=== PATIENT | female | born 2005 | race Caucasian/White ===

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

== ENCOUNTER 2023-03-13 21:14 | Emergency (ER) | payer OTHER ==
[~2023-03-13] VITALS: Ht 152.4 cm; Wt 60.7 kg
[2023-03-13 21:15] VITALS: BP 123/67
== END 2023-03-13 23:38 | disposition left against medical advice (07) ==
LOC: M ED 21:14
DX: Z53.21 Procedure and treatment not carried out due to patient leaving prior to being seen by health care provider (principal)

== ENCOUNTER 2024-05-16 14:04 | Inpatient (IN) | payer OTHER ==
[~2024-05-16] VITALS: Ht 152.4 cm; Wt 60.9 kg
[~2024-05-16 14:04] MED LIST changes: +CEFD1CAP9 PO; -CEFD300C41 PO; +GLUC1KIT IM; -GLUC1KIT INJ
[2024-05-16] MEDS ORDERED: PROZ20CA11 PO (14:16)
[2024-05-16 14:59] LABS: BASO % 0.4 % (0.0-1.0); EOS % 0.2 % (0.0-3.0); HEMATOCRIT 41.3 % (36.0-47.0); HEMOGLOBIN 13.7 g/dl (12.0-15.5); LYMPH # 0.4 10^3/uL (1.5-5.0); LYMPH % 8.3 % (24.0-44.0); MEAN CORPUSCULAR HEMOGLOBIN 29.5 pg (27.0-33.0); MEAN CORPUSCULAR HGB CONC 33.2 g/dl (32.0-36.5); MEAN CORPUSCULAR VOLUME 88.8 fl (80.0-96.0); MONO # 0.6 10^3/uL (0.0-0.8); MONO % 12.1 % (2.0-8.0); NEUTROPHILS # 3.7 10^3/uL (1.5-8.5); NEUTROPHILS % 78.4 % (36.0-66.0); PLATELET COUNT, AUTOMATED 203 10^3/uL (150-450); RED BLOOD COUNT 4.65 10^6/uL (4.00-5.40); WHITE BLOOD COUNT 4.7 10^3/uL (4.0-10.0)
[2024-05-16 15:24] LABS: LIPASE 25 U/L (12-53)
[2024-05-16] MEDS: NS 1,000 ML IV ONE ×2 (15:26→18:45)
[2024-05-16 15:27] LABS: HCG, SERUM QUALITATIVE NEGATIVE (NEGATIVE)
[2024-05-16] MEDS: ACETAMINOPHEN *IV* 1,000 MG in IV 1 EA IV ONE (15:27)
[2024-05-16 15:39] LABS: VENOUS BASE EXCESS 2.3 (-2.0-2.0); VENOUS HCO3 26.3 MMOL/L (23.0-27.0); VENOUS O2 SATURATION 90.5 % (60.0-80.0); VENOUS PARTIAL PRESSURE CO2 38.8 mmHg (38.0-50.0); VENOUS PARTIAL PRESSURE O2 55.5 mmHg (30.0-50.0); VENOUS PH 7.449 UNITS (7.330-7.430); VENOUS STANDARD HCO3 26.3 MMOL/L; VENOUS TOTAL CO2 27.5 MMOL/L (24.0-28.0)
[2024-05-16 15:46] LABS: OSMOLALITY SERUM 309 MOSM/KG (275-295)
[2024-05-16 15:49] LABS: ACETONE/KETONE 2.89 MMOL/L (0.02-0.27)
[2024-05-16 15:53] LABS: ALBUMIN 2.8 G/DL (3.2-5.2); ALKALINE PHOSPHATASE 330 U/L (46-116); ALT/SGPT 156 U/L (7.0-40); AST/SGOT 89 U/L (<34); BILIRUBIN,DIRECT 0.3 MG/DL (<0.4); BLOOD UREA NITROGEN 15 MG/DL (9-23); CALCIUM LEVEL 8.9 MG/DL (8.5-10.1); CARBON DIOXIDE LEVEL 26 MMOL/L (20-31); CHLORIDE LEVEL 91 MMOL/L (98-107); CREATININE FOR GFR 0.59 MG/DL (0.55-1.30); GLUCOSE, FASTING 598 MG/DL (60-100); MAGNESIUM LEVEL 1.9 MG/DL (1.8-2.4); PHOSPHORUS LEVEL 2.8 MG/DL (2.5-4.9); POTASSIUM SERUM 4.2 MMOL/L (3.5-5.1); SODIUM LEVEL 129 MMOL/L (136-145); TOTAL PROTEIN 6.5 G/DL (5.7-8.2)
[2024-05-16 15:59] LABS: HEMOGLOBIN A1c 10.8 % (4.0-6.0)
[2024-05-16] MEDS: HumuLIN R (REGULAR) INSULIN (NovoLIN R) **100U/ML** PER UNIT IV ONE (16:47)
[2024-05-16] MEDS: IBUPROFEN 600MG TAB PO ONE (16:50)
[2024-05-16] MEDS ORDERED: ISOVUE-370 76% 100ML VIAL As Ordered ONE (17:10)
[2024-05-16] MEDS: cefTRIAXone SOD 1 GM in D5W MINI-BAG PLUS 50 ML IV ONE (18:52)
[2024-05-16] MEDS ORDERED: PROHANCE 279.3MG/ML 15ML VIAL As Ordered ONE (22:15)
[2024-05-17] MEDS ORDERED: HumuLIN R (REGULAR) INSULIN (NovoLIN R) **100U/ML** PER UNIT IV ONE (01:55)
[2024-05-17] MEDS: HumuLIN R (REGULAR) INSULIN (NovoLIN R) **100U/ML** PER UNIT SC STA (02:04)
[2024-05-17] MEDS ORDERED: GLUCOSE 4 GM CHEW PO PRN (04:25)
[2024-05-17] MEDS ORDERED: DEXTROSE 50% 50ML SYRINGE IV PRN (04:25)
[2024-05-17] MEDS ORDERED: GLUCAGON INJ 1MG VIAL SC PRN (04:25)
[2024-05-17] MEDS: NS 1,000 ML IV SCH (04:30)
[2024-05-17] MEDS ORDERED: FLUO-290 PO (04:51)
[2024-05-17] MEDS ORDERED: FLUO-365 PO (04:51)
[2024-05-17] MEDS ORDERED: MELA1TAB PO (04:51)
[2024-05-17] MEDS ORDERED: HOME MED LIST COMPLETE! XX SCH (04:55)
[2024-05-17] MEDS: MORPHINE 2 MG/ML 1ML VIAL IV PRN (05:40)
[2024-05-17] MEDS: PROMETHAZINE 25MG/ML 1ML VIAL IV PRN (05:40)
[2024-05-17] MEDS: INSULIN LISPRO (NovoLOG) PER UNIT SC ONE (06:09)
[2024-05-17] MEDS: ACETAMINOPHEN TAB 650MG DOSE (2X325MG) PO ONE (06:09)
[2024-05-17 06:36] VITALS: BP 128/71; TEMP 98.5; O2SAT 100
[2024-05-17 08:06] LABS: HEMATOCRIT 39.3 % (36.0-47.0); HEMOGLOBIN 12.3 g/dl (12.0-15.5); MEAN CORPUSCULAR HEMOGLOBIN 29.5 pg (27.0-33.0); MEAN CORPUSCULAR HGB CONC 31.3 g/dl (32.0-36.5); MEAN CORPUSCULAR VOLUME 94.2 fl (80.0-96.0); PLATELET COUNT, AUTOMATED 209 10^3/uL (150-450); RED BLOOD COUNT 4.17 10^6/uL (4.00-5.40); WHITE BLOOD COUNT 7.1 10^3/uL (4.0-10.0)
[2024-05-17 08:33] LABS: ALBUMIN 2.2 G/DL (3.2-5.2); ALKALINE PHOSPHATASE 324 U/L (46-116); ALT/SGPT 125 U/L (7.0-40); AST/SGOT 78 U/L (<34); BILIRUBIN,TOTAL 0.3 MG/DL (0.3-1.2); BLOOD UREA NITROGEN 11 MG/DL (9-23); CALCIUM LEVEL 8.6 MG/DL (8.5-10.1); CARBON DIOXIDE LEVEL < 10.0 MMOL/L (20-31); CHLORIDE LEVEL 101 MMOL/L (98-107); CREATININE FOR GFR 0.65 MG/DL (0.55-1.30); GLUCOSE, FASTING 405 MG/DL (60-100); SODIUM LEVEL 134 MMOL/L (136-145); TOTAL PROTEIN 5.9 G/DL (5.7-8.2)
[2024-05-17] MEDS: ENOXAPARIN 40MG/0.4ML SYRINGE (J1650 PER 10MG) SC SCH (08:45)
[2024-05-17] MEDS: FLUoxetine 10 MG CAP PO SCH (08:45)
[2024-05-17] MEDS: FLUoxetine 20MG CAP PO SCH (08:45)
[2024-05-17] MEDS: LEVEMIR (INSULIN DETEMIR) 1 UNITS/0.01ML SC SCH (08:46)
[2024-05-17] MEDS: INSULIN LISPRO (NovoLOG) PER UNIT SC SCH ×2 (08:46→20:26)
[2024-05-17] MEDS ORDERED: LEVEMIR (INSULIN DETEMIR) 1 UNITS/0.01ML SC SCH (09:00)
[2024-05-17 12:07] VITALS: BP 113/72; TEMP 97; O2SAT 97
[2024-05-17 15:25] LABS: BLOOD UREA NITROGEN 11 MG/DL (9-23); CALCIUM LEVEL 7.8 MG/DL (8.5-10.1); CARBON DIOXIDE LEVEL 23 MMOL/L (20-31); CHLORIDE LEVEL 104 MMOL/L (98-107); CREATININE FOR GFR 0.57 MG/DL (0.55-1.30); GLUCOSE, FASTING 312 MG/DL (60-100); POTASSIUM SERUM 4.1 MMOL/L (3.5-5.1); SODIUM LEVEL 135 MMOL/L (136-145)
[2024-05-17 16:54] VITALS: BP 121/65; TEMP 98.3; O2SAT 95
[2024-05-17] MEDS ORDERED: cefTRIAXone SOD 1 GM in D5W MINI-BAG PLUS 50 ML IV SCH (18:00)
[2024-05-17] MEDS: cefTRIAXone SOD 2 GM in D5W MINI-BAG PLUS 50 ML IV SCH (18:21)
[2024-05-17 19:31] VITALS: BP 138/79; TEMP 98.3; O2SAT 98
[2024-05-17] MEDS: LEVOTHYROXINE 50MCG TABLET (0.05MG) PO SCH (20:25)
[2024-05-17 23:48] VITALS: BP 123/78; TEMP 98.2; O2SAT 98
[2024-05-18 04:05] VITALS: BP 138/89; TEMP 98.1; O2SAT 98
[2024-05-18 07:28] VITALS: BP 138/92; TEMP 98.2; O2SAT 99
[2024-05-18 07:41] LABS: HEMATOCRIT 37.6 % (36.0-47.0); HEMOGLOBIN 12.3 g/dl (12.0-15.5); MEAN CORPUSCULAR HEMOGLOBIN 29.1 pg (27.0-33.0); MEAN CORPUSCULAR HGB CONC 32.7 g/dl (32.0-36.5); MEAN CORPUSCULAR VOLUME 88.9 fl (80.0-96.0); PLATELET COUNT, AUTOMATED 231 10^3/uL (150-450); RED BLOOD COUNT 4.23 10^6/uL (4.00-5.40); WHITE BLOOD COUNT 7.1 10^3/uL (4.0-10.0)
[2024-05-18 07:59] LABS: BLOOD UREA NITROGEN 6 MG/DL (9-23); CALCIUM LEVEL 8.1 MG/DL (8.5-10.1); CARBON DIOXIDE LEVEL 27 MMOL/L (20-31); CHLORIDE LEVEL 108 MMOL/L (98-107); CREATININE FOR GFR 0.49 MG/DL (0.55-1.30); GLUCOSE, FASTING 99 MG/DL (60-100); POTASSIUM SERUM 3.5 MMOL/L (3.5-5.1); SODIUM LEVEL 142 MMOL/L (136-145)
[2024-05-18 08:37] LABS: ATYPICAL LYMPH 8 % (0-5); LYMPHOCYTES 11 % (16-44); MONOCYTES 8 % (0-5); NEUTROPHILS 68 % (28-66)
[2024-05-18 08:40] LABS: PLATELET ESTIMATE NORMAL (NORMAL)
[2024-05-18 12:08] VITALS: BP 129/86; TEMP 98.1; O2SAT 97
[2024-05-18 16:16] VITALS: BP 140/90; TEMP 97; O2SAT 97
[2024-05-18 18:53] VITALS: BP 135/95; TEMP 98.2; O2SAT 99
[2024-05-18 23:28] VITALS: BP 136/89; TEMP 98.4; O2SAT 97
[2024-05-19] MEDS: ACETAMINOPHEN TAB 650MG DOSE (2X325MG) PO ONE
[2024-05-19 04:12] VITALS: BP 124/91; TEMP 97; O2SAT 99
[2024-05-19 06:50] LABS: BASO % 0.5 % (0.0-1.0); EOS # 0.1 10^3/uL (0.0-0.5); EOS % 1.6 % (0.0-3.0); HEMATOCRIT 35.6 % (36.0-47.0); HEMOGLOBIN 11.9 g/dl (12.0-15.5); LYMPH # 2.6 10^3/uL (1.5-5.0); LYMPH % 34.8 % (24.0-44.0); MEAN CORPUSCULAR HEMOGLOBIN 29.5 pg (27.0-33.0); MEAN CORPUSCULAR HGB CONC 33.4 g/dl (32.0-36.5); MEAN CORPUSCULAR VOLUME 88.1 fl (80.0-96.0); MONO # 0.7 10^3/uL (0.0-0.8); MONO % 9.4 % (2.0-8.0); NEUTROPHILS # 3.9 10^3/uL (1.5-8.5); NEUTROPHILS % 53.2 % (36.0-66.0); PLATELET COUNT, AUTOMATED 244 10^3/uL (150-450); RED BLOOD COUNT 4.04 10^6/uL (4.00-5.40); WHITE BLOOD COUNT 7.4 10^3/uL (4.0-10.0)
[2024-05-19 07:07] LABS: ALBUMIN 1.9 G/DL (3.2-5.2); ALKALINE PHOSPHATASE 279 U/L (46-116); ALT/SGPT 101 U/L (7.0-40); AST/SGOT 85 U/L (<34); BILIRUBIN,DIRECT < 0.1 MG/DL (<0.4); BILIRUBIN,TOTAL 0.3 MG/DL (0.3-1.2); BLOOD UREA NITROGEN 6 MG/DL (9-23); CALCIUM LEVEL 8.4 MG/DL (8.5-10.1); CARBON DIOXIDE LEVEL 32 MMOL/L (20-31); CHLORIDE LEVEL 105 MMOL/L (98-107); CREATININE FOR GFR 0.43 MG/DL (0.55-1.30); GLUCOSE, FASTING 90 MG/DL (60-100); POTASSIUM SERUM 3.4 MMOL/L (3.5-5.1); SODIUM LEVEL 143 MMOL/L (136-145); TOTAL PROTEIN 5.3 G/DL (5.7-8.2)
[2024-05-19 07:46] VITALS: BP 140/100; TEMP 97.4; O2SAT 97
[2024-05-19] MEDS ORDERED: PROBCAP14 PO (08:32)
[2024-05-19] MEDS ORDERED: CEFD300CAP PO (08:32)
[2024-05-19] MEDS: POTASSIUM CHLORIDE 10MEQ SR TABLET PO ONE (09:02)
[2024-05-19] MEDS: cefTRIAXone SOD 2 GM in D5W MINI-BAG PLUS 50 ML IV SCH (11:16)
== END 2024-05-19 12:38 | disposition home or self-care (01) | DRG 871 ==
LOC: M ED 14:04 → M ED INP 05-17 04:29 → M PCU 05-17 06:36
PROVIDERS: ADMIT Family Medicine; ATTEND Family Medicine
DX: A41.9 Sepsis, unspecified organism (principal); E10.10 Type 1 diabetes mellitus with ketoacidosis without coma; N10 Acute pyelonephritis; E87.1 Hypo-osmolality and hyponatremia; E10.65 Type 1 diabetes mellitus with hyperglycemia; F17.290 Nicotine dependence, other tobacco product, uncomplicated; B96.20 Unspecified Escherichia coli [E. coli] as the cause of diseases classified elsewhere; K76.89 Other specified diseases of liver; R74.01 Elevation of levels of liver transaminase levels; Z79.4 Long term (current) use of insulin; Z79.890 Hormone replacement therapy; Z79.899 Other long term (current) drug therapy; Z88.1 Allergy status to other antibiotic agents